=== PATIENT | male | born 1990 | race Caucasian/White ===

== ENCOUNTER 2021-04-03 20:36 | Inpatient (IN) | payer MEDICAID ==
[~2021-04-03] VITALS: Ht 188 cm; Wt 131.5 kg
[2021-04-03] MEDS ORDERED: DEXAMETHASONE 10 MG/ML VIAL IV ONE (21:15)
[2021-04-03] MEDS ORDERED: CEFTRIAXONE 1 G PREMIX 50 ML IV ONE (21:15)
[2021-04-03] MEDS ORDERED: AZITHROMYCIN 500 MG in DEXT 5% WATER 250 ML IV ONE (21:15)
[2021-04-03] MEDS ORDERED: SODIUM CHLORIDE 0.9% 1000ML BAG (SEPSIS BOLUS) IV ONE (21:15)
[2021-04-03 22:37] LABS: BASOPHILS % 0.1 % (0.0-2.0); HEMATOCRIT. 38.5 % (42.0-52.0); HEMOGLOBIN. 13.3 g/dL (14.0-18.0); LYMPHOCYTES % 13.5 % (20.0-50.0); MEAN CORPUSCULAR HEMOGLOBIN 30.5 pg (28.0-32.0); MEAN CORPUSCULAR VOLUME 88.4 fL (80.0-94.0); MEAN PLATELET VOLUME 11.4 fl (7.4-10.4); MONOCYTES % 2.6 % (2.0-8.0); NEUTROPHILS % 83.8 % (40.0-76.0); PLATELET 89 x1000/uL (130-400); RED BLOOD CELL COUNT 4.36 mill/uL (4.7-6.1); RED CELL DISTRIBUTION WIDTH 13.7 % (11.6-14.6)
[2021-04-03 22:42] LABS: CHLORIDE 95 mEq/L (98-107)
[2021-04-03 22:48] LABS: PARTIAL THROMBOPLASTIN TIME 27.6 sec (23.4-31.0)
[2021-04-04] VITALS (7 sets, daily range): BP systolic 106–151; BP diastolic 59–83
[2021-04-04] MEDS: GUAIFENESIN-DM 200MG-20MG/10ML UDC PO PRN ×2 (02:31→21:11)
[2021-04-04 09:00] LABS: BASOPHILS % 0.2 % (0.0-2.0); HEMATOCRIT. 34.9 % (42.0-52.0); HEMOGLOBIN. 12.1 g/dL (14.0-18.0); LYMPHOCYTES % 12.6 % (20.0-50.0); MEAN CORPUSCULAR HEMOGLOBIN 30.5 pg (28.0-32.0); MEAN CORPUSCULAR VOLUME 88.3 fL (80.0-94.0); MEAN PLATELET VOLUME 11.1 fl (7.4-10.4); MONOCYTES % 2.6 % (2.0-8.0); NEUTROPHILS % 84.6 % (40.0-76.0); PLATELET 95 x1000/uL (130-400); RED BLOOD CELL COUNT 3.96 mill/uL (4.7-6.1); RED CELL DISTRIBUTION WIDTH 13.7 % (11.6-14.6)
[2021-04-04] MEDS ORDERED: ENOXAPARIN 40MG/0.4ML SYR SUBCUT SCH (09:00)
[2021-04-04] MEDS: DEXAMETHASONE 10 MG/ML VIAL IV SCH (09:04)
[2021-04-04 09:11] LABS: CHLORIDE 98 mEq/L (98-107)
[2021-04-04] MEDS ORDERED: ONDANSETRON HCL 4MG/2ML INJ IV PRN (09:15)
[2021-04-04] MEDS: BENZONATATE 100MG CAPSULE PO SCH ×3 (09:28→21:11)
[2021-04-04] MEDS: ENOXAPARIN 40MG/0.4ML SYR SUBCUT SCH ×2 (09:29→21:11)
[2021-04-04] MEDS: ACETAMINOPHEN 325MG TABLET PO PRN (09:30)
[2021-04-04] MEDS: CEFTRIAXONE 1,000 MG in DEXTROSE 5% WATER 50 ML IV SCH (21:11)
[2021-04-04] MEDS: AZITHROMYCIN 500 MG in DEXT 5% WATER 250 ML IV SCH (22:05)
[2021-04-05] VITALS (7 sets, daily range): BP systolic 133–152; BP diastolic 60–88
[2021-04-05] MEDS: BENZONATATE 100MG CAPSULE PO SCH ×3 (07:07→21:36)
[2021-04-05] MEDS: ENOXAPARIN 40MG/0.4ML SYR SUBCUT SCH ×2 (08:08→21:36)
[2021-04-05] MEDS: DEXAMETHASONE 10 MG/ML VIAL IV SCH (08:08)
[2021-04-05] MEDS: ALBUTEROL 6.7GM HFA INHALER ORI PRN (15:32)
[2021-04-05] MEDS: CEFTRIAXONE 1,000 MG in DEXTROSE 5% WATER 50 ML IV SCH (21:36)
[2021-04-05] MEDS: AZITHROMYCIN 500 MG in DEXT 5% WATER 250 ML IV SCH (23:43)
[2021-04-06] VITALS: BP 141/69
[2021-04-06 04:00] VITALS: BP 133/57
[2021-04-06 04:48] LABS: BG BASE EXCESS 1.8 mmol/L (-2.0-2.0); BG CARBOXYHEMOGLOBIN 0.3 % (0.5-1.5); BG DEOXYHEMOGLOBIN 7.8 % (0.0-5.0); BG FRACTION INSPIRED OXYGEN 100; BG HCO3 ACT 26.1 mmol/L (22.0-26.0); BG METHEMOGLOBIN 0.2 % (0.0-1.5); BG OXYGEN SATURATION 92.2 % (92.0-98.5); BG OXYHEMOGLOBIN 91.7 % (94.0-97.0); BG PH 7.433 (7.350-7.450); BG PO2 63.6 mmHg (75.0-100.0); BG SAMPLE SITE LEFT RADIAL; BG VENT MODE MASK - BIPAP
[2021-04-06 06:35] LABS: BASOPHILS % 0.1 % (0.0-2.0); HEMATOCRIT. 40.8 % (42.0-52.0); HEMOGLOBIN. 13.7 g/dL (14.0-18.0); LYMPHOCYTES % 9.3 % (20.0-50.0); MEAN CORPUSCULAR HEMOGLOBIN 29.7 pg (28.0-32.0); MEAN CORPUSCULAR VOLUME 88.4 fL (80.0-94.0); MEAN PLATELET VOLUME 11.6 fl (7.4-10.4); MONOCYTES % 3.7 % (2.0-8.0); NEUTROPHILS % 86.9 % (40.0-76.0); PLATELET 146 x1000/uL (130-400); RED BLOOD CELL COUNT 4.61 mill/uL (4.7-6.1); RED CELL DISTRIBUTION WIDTH 13.9 % (11.6-14.6)
[2021-04-06] MEDS: BENZONATATE 100MG CAPSULE PO SCH ×3 (06:46→21:01)
[2021-04-06 08:00] VITALS: BP 128/78
[2021-04-06] MEDS: DEXAMETHASONE 10 MG/ML VIAL IV SCH (08:20)
[2021-04-06] MEDS: ENOXAPARIN 40MG/0.4ML SYR SUBCUT SCH ×2 (08:20→21:01)
[2021-04-06 12:00] VITALS: BP 131/79
[2021-04-06 16:00] VITALS: BP 136/71
[2021-04-06 20:00] VITALS: BP 122/73
[2021-04-06] MEDS: CEFTRIAXONE 1,000 MG in DEXTROSE 5% WATER 50 ML IV SCH (21:01)
[2021-04-06] MEDS: AZITHROMYCIN 500 MG in DEXT 5% WATER 250 ML IV SCH (22:05)
[2021-04-07 00:25] VITALS: BP 111/55
[2021-04-07] MEDS: GUAIFENESIN-DM 200MG-20MG/10ML UDC PO PRN (02:43)
[2021-04-07] MEDS: ACETAMINOPHEN 325MG TABLET PO PRN (02:43)
[2021-04-07 04:00] VITALS: BP 110/59
[2021-04-07] MEDS: BENZONATATE 100MG CAPSULE PO SCH ×3 (05:07→21:04)
[2021-04-07 08:00] VITALS: BP 125/64
[2021-04-07] MEDS: DEXAMETHASONE 10 MG/ML VIAL IV SCH (08:02)
[2021-04-07] MEDS: ENOXAPARIN 40MG/0.4ML SYR SUBCUT SCH (08:02)
[2021-04-07 08:04] LABS: BASOPHILS % 0.3 % (0.0-2.0); EOSINOPHILS % 0.3 % (0.0-5.0); HEMATOCRIT. 36.7 % (42.0-52.0); HEMOGLOBIN. 12.6 g/dL (14.0-18.0); LYMPHOCYTES % 10.1 % (20.0-50.0); MEAN CORPUSCULAR HEMOGLOBIN 30.2 pg (28.0-32.0); MEAN CORPUSCULAR VOLUME 88.2 fL (80.0-94.0); NEUTROPHILS % 86.3 % (40.0-76.0); PLATELET 159 x1000/uL (130-400); RED BLOOD CELL COUNT 4.16 mill/uL (4.7-6.1); RED CELL DISTRIBUTION WIDTH 13.6 % (11.6-14.6)
[2021-04-07 08:23] LABS: CHLORIDE 98 mEq/L (98-107)
[2021-04-07] MEDS: ALBUTEROL 6.7GM HFA INHALER ORI PRN ×2 (08:52→13:37)
[2021-04-07 11:53] LABS: BG BASE EXCESS 2.8 mmol/L (-2.0-2.0); BG CARBOXYHEMOGLOBIN 0.3 % (0.5-1.5); BG FRACTION INSPIRED OXYGEN 100; BG HCO3 ACT 26.7 mmol/L (22.0-26.0); BG METHEMOGLOBIN 0.3 % (0.0-1.5); BG OXYHEMOGLOBIN 95.4 % (94.0-97.0); BG PCO2 38.5 mmHg (35.0-45.0); BG PH 7.459 (7.350-7.450); BG PO2 81.2 mmHg (75.0-100.0); BG SAMPLE SITE RIGHT RADIAL; BG TOTAL HEMOGLOBIN 13.6 g/dL (12.0-18.0); BG TOTAL RESPIRATORY RATE 48 b/min; BG VENT MODE MASK - BIPAP
[2021-04-07 12:00] VITALS: BP 132/60
[2021-04-07 16:00] VITALS: BP 125/69
[2021-04-07 20:00] VITALS: BP 123/57
[2021-04-07] MEDS: CEFTRIAXONE 1,000 MG in DEXTROSE 5% WATER 50 ML IV SCH (21:03)
[2021-04-07] MEDS: ENOXAPARIN 30MG/0.3ML SYR SUBCUT SCH (21:04)
[2021-04-07] MEDS: AZITHROMYCIN 500 MG in DEXT 5% WATER 250 ML IV SCH (23:06)
[2021-04-08] VITALS: BP 131/67
[2021-04-08] MEDS: GUAIFENESIN-DM 200MG-20MG/10ML UDC PO PRN ×2 (03:08→13:05)
[2021-04-08 04:00] VITALS: BP 135/56
[2021-04-08] MEDS: BENZONATATE 100MG CAPSULE PO SCH ×3 (05:27→22:51)
[2021-04-08 08:00] VITALS: BP 149/74
[2021-04-08] MEDS: DEXAMETHASONE 10 MG/ML VIAL IV SCH (08:06)
[2021-04-08] MEDS: ENOXAPARIN 30MG/0.3ML SYR SUBCUT SCH ×2 (08:07→22:52)
[2021-04-08] MEDS: ACETAMINOPHEN 325MG TABLET PO PRN (08:19)
[2021-04-08 12:00] VITALS: BP 124/68
[2021-04-08 12:14] LABS: BG BASE EXCESS 4.2 mmol/L (-2.0-2.0); BG CARBOXYHEMOGLOBIN 0.1 % (0.5-1.5); BG DEOXYHEMOGLOBIN 6.7 % (0.0-5.0); BG FRACTION INSPIRED OXYGEN 100; BG HCO3 ACT 28.9 mmol/L (22.0-26.0); BG METHEMOGLOBIN 0.2 % (0.0-1.5); BG OXYGEN SATURATION 93.3 % (92.0-98.5); BG PCO2 43.9 mmHg (35.0-45.0); BG PH 7.437 (7.350-7.450); BG PO2 66.6 mmHg (75.0-100.0); BG SAMPLE SITE RIGHT RADIAL; BG TOTAL HEMOGLOBIN 13.3 g/dL (12.0-18.0); BG TOTAL RESPIRATORY RATE 29 b/min; BG VENT MODE MASK - BIPAP
[2021-04-08 16:00] VITALS: BP 122/57
[2021-04-08 20:00] VITALS: BP 143/85
[2021-04-08 21:46] LABS: HEMATOCRIT. 40.5 % (42.0-52.0); HEMOGLOBIN. 13.4 g/dL (14.0-18.0); MEAN CORPUSCULAR HEMOGLOBIN 29.3 pg (28.0-32.0); MEAN CORPUSCULAR VOLUME 88.9 fL (80.0-94.0); MEAN PLATELET VOLUME 10.3 fl (7.4-10.4); PLATELET 175 x1000/uL (130-400); RED BLOOD CELL COUNT 4.55 mill/uL (4.7-6.1); RED CELL DISTRIBUTION WIDTH 13.4 % (11.6-14.6)
[2021-04-08 22:12] LABS: CHLORIDE 99 mEq/L (98-107)
[2021-04-08 22:23] LABS: PLATELET ESTIMATE NORMAL
[2021-04-08] MEDS: CEFTRIAXONE 1,000 MG in DEXTROSE 5% WATER 50 ML IV SCH (22:50)
[2021-04-09] VITALS: BP 136/82
[2021-04-09 04:00] VITALS: BP 130/77
[2021-04-09] MEDS: BENZONATATE 100MG CAPSULE PO SCH ×3 (05:37→21:16)
[2021-04-09] MEDS: GUAIFENESIN-DM 200MG-20MG/10ML UDC PO PRN (07:59)
[2021-04-09] MEDS: DEXAMETHASONE 10 MG/ML VIAL IV SCH (07:59)
[2021-04-09 08:00] VITALS: BP 134/73
[2021-04-09] MEDS: ENOXAPARIN 30MG/0.3ML SYR SUBCUT SCH ×2 (08:00→21:16)
[2021-04-09 10:09] LABS: BG BASE EXCESS 4.1 mmol/L (-2.0-2.0); BG CARBOXYHEMOGLOBIN 0.2 % (0.5-1.5); BG FRACTION INSPIRED OXYGEN 99.8; BG HCO3 ACT 28.1 mmol/L (22.0-26.0); BG METHEMOGLOBIN 0.2 % (0.0-1.5); BG OXYHEMOGLOBIN 93.6 % (94.0-97.0); BG PH 7.465 (7.350-7.450); BG PO2 68.4 mmHg (75.0-100.0); BG SAMPLE SITE RIGHT RADIAL; BG TOTAL HEMOGLOBIN 12.9 g/dL (12.0-18.0); BG VENT MODE MASK - NRB
[2021-04-09 10:11] LABS: HEMOGLOBIN. 12.1 g/dL (14.0-18.0); MEAN CORPUSCULAR HEMOGLOBIN 30.1 pg (28.0-32.0); MEAN CORPUSCULAR VOLUME 89.4 fL (80.0-94.0); MEAN PLATELET VOLUME 10.4 fl (7.4-10.4); PLATELET 174 x1000/uL (130-400); RED BLOOD CELL COUNT 4.03 mill/uL (4.7-6.1); RED CELL DISTRIBUTION WIDTH 13.9 % (11.6-14.6)
[2021-04-09 10:18] LABS: CHLORIDE 98 mEq/L (98-107)
[2021-04-09 12:00] VITALS: BP 119/65
[2021-04-09] MEDS: ACETAMINOPHEN 325MG TABLET PO PRN (12:09)
[2021-04-09 13:51] LABS: PLATELET ESTIMATE NORMAL
[2021-04-09 16:00] VITALS: BP 137/82
[2021-04-09 20:00] VITALS: BP 139/83
[2021-04-09] MEDS: CEFEPIME 1,000 MG in DEXTROSE 5% WATER 50 ML IV SCH (21:15)
[2021-04-09] MEDS ORDERED: IVERMECTIN 3 MG TABLET PO SCH (22:00)
[2021-04-10] VITALS: BP 145/77
[2021-04-10 04:00] VITALS: BP 141/72
[2021-04-10] MEDS: ACETAMINOPHEN 325MG TABLET PO PRN (04:52)
[2021-04-10] MEDS: BENZONATATE 100MG CAPSULE PO SCH ×3 (04:56→21:16)
[2021-04-10 08:00] VITALS: BP 112/48
[2021-04-10] MEDS: MULTIVITAMINS,THER W-MINERALS TABLET PO SCH (08:26)
[2021-04-10] MEDS: DEXAMETHASONE 10 MG/ML VIAL IV SCH (08:26)
[2021-04-10] MEDS: ENOXAPARIN 30MG/0.3ML SYR SUBCUT SCH ×2 (08:26→21:16)
[2021-04-10] MEDS: CEFEPIME 1,000 MG in DEXTROSE 5% WATER 50 ML IV SCH (08:26)
[2021-04-10 12:00] VITALS: BP_SYST 121; BP_SYST 124; BP_DIAS 70; BP_DIAS 71
[2021-04-10 16:00] VITALS: BP 118/73
[2021-04-10 20:44] VITALS: BP 133/74
[2021-04-11 00:22] VITALS: BP 105/55
[2021-04-11] MEDS: GUAIFENESIN-DM 200MG-20MG/10ML UDC PO PRN ×2 (03:22→22:20)
[2021-04-11 04:00] VITALS: BP 144/80
[2021-04-11] MEDS: BENZONATATE 100MG CAPSULE PO SCH ×3 (06:04→21:35)
[2021-04-11 08:00] VITALS: BP 131/63
[2021-04-11] MEDS: DEXAMETHASONE 10 MG/ML VIAL IV SCH (08:02)
[2021-04-11] MEDS: ENOXAPARIN 30MG/0.3ML SYR SUBCUT SCH ×2 (08:03→21:34)
[2021-04-11] MEDS: MULTIVITAMINS,THER W-MINERALS TABLET PO SCH (08:03)
[2021-04-11 12:00] VITALS: BP 123/59
[2021-04-11 16:00] VITALS: BP 121/62
[2021-04-11 20:00] VITALS: BP 116/65
[2021-04-11] MEDS ORDERED: IVERMECTIN 3 MG TABLET PO SCH (22:00)
[2021-04-12] VITALS: BP 123/77
[2021-04-12 04:00] VITALS: BP 110/54
[2021-04-12] MEDS: BENZONATATE 100MG CAPSULE PO SCH ×3 (06:09→20:55)
[2021-04-12 08:00] VITALS: BP 126/66
[2021-04-12] MEDS: GUAIFENESIN-DM 200MG-20MG/10ML UDC PO PRN (08:27)
[2021-04-12] MEDS: MULTIVITAMINS,THER W-MINERALS TABLET PO SCH (08:27)
[2021-04-12] MEDS: DEXAMETHASONE 10 MG/ML VIAL IV SCH (08:27)
[2021-04-12] MEDS: ENOXAPARIN 30MG/0.3ML SYR SUBCUT SCH ×2 (08:28→20:55)
[2021-04-12 08:51] LABS: CHLORIDE 99 mEq/L (98-107)
[2021-04-12 12:00] VITALS: BP 122/68
[2021-04-12] MEDS: THROAT LOZENGES-BENZOCAINE/MENTH/CETYLPYRD CL LOZENGES MM PRN ×2 (14:54→20:55)
[2021-04-12] MEDS: DIPHENHYDRAMINE 50MG CAPSULE PO PRN (14:54)
[2021-04-12 16:00] VITALS: BP 138/67
[2021-04-12 20:00] VITALS: BP 112/66
[2021-04-13] VITALS: BP 117/66
[2021-04-13] MEDS: GUAIFENESIN-DM 200MG-20MG/10ML UDC PO PRN ×2 (03:50→09:52)
[2021-04-13] MEDS: THROAT LOZENGES-BENZOCAINE/MENTH/CETYLPYRD CL LOZENGES MM PRN ×2 (03:53→09:52)
[2021-04-13 04:00] VITALS: BP 119/62
[2021-04-13] MEDS: BENZONATATE 100MG CAPSULE PO SCH ×3 (05:40→21:10)
[2021-04-13 08:00] VITALS: BP 140/71
[2021-04-13] MEDS: DIPHENHYDRAMINE 50MG CAPSULE PO PRN (09:42)
[2021-04-13] MEDS: ENOXAPARIN 30MG/0.3ML SYR SUBCUT SCH ×2 (09:42→21:10)
[2021-04-13] MEDS: ALBUTEROL 6.7GM HFA INHALER ORI PRN (09:42)
[2021-04-13] MEDS: MULTIVITAMINS,THER W-MINERALS TABLET PO SCH (09:42)
[2021-04-13] MEDS: DEXAMETHASONE 10 MG/ML VIAL IV SCH (11:15)
[2021-04-13 12:00] VITALS: BP 140/72
[2021-04-13 16:00] VITALS: BP 131/63
[2021-04-13 20:00] VITALS: BP 132/55
[2021-04-14 00:03] VITALS: BP 117/62
[2021-04-14 04:00] VITALS: BP 136/84
[2021-04-14] MEDS: BENZONATATE 100MG CAPSULE PO SCH ×3 (05:22→20:15)
[2021-04-14 08:00] VITALS: BP 115/55
[2021-04-14] MEDS: THROAT LOZENGES-BENZOCAINE/MENTH/CETYLPYRD CL LOZENGES MM PRN ×2 (08:07→14:38)
[2021-04-14] MEDS: GUAIFENESIN-DM 200MG-20MG/10ML UDC PO PRN ×2 (08:07→14:38)
[2021-04-14] MEDS: DEXAMETHASONE 10 MG/ML VIAL IV SCH (08:08)
[2021-04-14] MEDS: ENOXAPARIN 30MG/0.3ML SYR SUBCUT SCH ×2 (08:08→20:15)
[2021-04-14] MEDS: MULTIVITAMINS,THER W-MINERALS TABLET PO SCH (08:08)
[2021-04-14 12:00] VITALS: BP 112/60
[2021-04-14] MEDS: ALBUTEROL 6.7GM HFA INHALER ORI PRN (14:31)
[2021-04-14 15:08] LABS: BG BASE EXCESS 3.3 mmol/L (-2.0-2.0); BG CARBOXYHEMOGLOBIN 0.3 % (0.5-1.5); BG DEOXYHEMOGLOBIN 4.3 % (0.0-5.0); BG METHEMOGLOBIN 0.1 % (0.0-1.5); BG OXYGEN SATURATION 95.7 % (92.0-98.5); BG OXYHEMOGLOBIN 95.3 % (94.0-97.0); BG PCO2 54.6 mmHg (35.0-45.0); BG PH 7.358 (7.350-7.450); BG PO2 82.6 mmHg (75.0-100.0); BG SAMPLE SITE RIGHT RADIAL; BG TOTAL HEMOGLOBIN 13.6 g/dL (12.0-18.0); BG VENT MODE MASK - NRB
[2021-04-14 16:00] VITALS: BP 116/73
[2021-04-14 20:00] VITALS: BP 94/53
[2021-04-15 00:05] VITALS: BP 120/81
[2021-04-15 04:00] VITALS: BP 97/59
[2021-04-15] MEDS: GUAIFENESIN-DM 200MG-20MG/10ML UDC PO PRN (04:48)
[2021-04-15] MEDS: BENZONATATE 100MG CAPSULE PO SCH ×3 (04:48→21:20)
[2021-04-15 06:35] LABS: CHLORIDE 100 mEq/L (98-107)
[2021-04-15 06:45] LABS: BASOPHILS % 0.4 % (0.0-2.0); EOSINOPHILS % 1.2 % (0.0-5.0); HEMATOCRIT. 38.5 % (42.0-52.0); HEMOGLOBIN. 13.2 g/dL (14.0-18.0); LYMPHOCYTES % 14.8 % (20.0-50.0); MEAN CORPUSCULAR HEMOGLOBIN 30.4 pg (28.0-32.0); MEAN CORPUSCULAR VOLUME 88.8 fL (80.0-94.0); MEAN PLATELET VOLUME 10.6 fl (7.4-10.4); MONOCYTES % 5.2 % (2.0-8.0); NEUTROPHILS % 78.4 % (40.0-76.0); PLATELET 241 x1000/uL (130-400); RED BLOOD CELL COUNT 4.34 mill/uL (4.7-6.1); RED CELL DISTRIBUTION WIDTH 13.4 % (11.6-14.6)
[2021-04-15 08:00] VITALS: BP 110/57
[2021-04-15] MEDS: MULTIVITAMINS,THER W-MINERALS TABLET PO SCH (08:32)
[2021-04-15] MEDS: DEXAMETHASONE 10 MG/ML VIAL IV SCH (08:32)
[2021-04-15] MEDS: ENOXAPARIN 30MG/0.3ML SYR SUBCUT SCH ×2 (09:33→21:21)
[2021-04-15 10:30] LABS: BG BASE EXCESS 7.2 mmol/L (-2.0-2.0); BG CARBOXYHEMOGLOBIN 0.3 % (0.5-1.5); BG FRACTION INSPIRED OXYGEN 100; BG METHEMOGLOBIN 0.3 % (0.0-1.5); BG OXYHEMOGLOBIN 97.4 % (94.0-97.0); BG PCO2 51.7 mmHg (35.0-45.0); BG PH 7.423 (7.350-7.450); BG PO2 109.1 mmHg (75.0-100.0); BG SAMPLE SITE LEFT RADIAL; BG VENT MODE MASK - NRB
[2021-04-15 12:00] VITALS: BP 95/67
[2021-04-15 16:00] VITALS: BP 111/51
[2021-04-15 20:00] VITALS: BP 134/74
[2021-04-16] VITALS: BP 121/72
[2021-04-16 04:00] VITALS: BP 112/62
[2021-04-16] MEDS: BENZONATATE 100MG CAPSULE PO SCH ×3 (05:01→21:05)
[2021-04-16 08:00] VITALS: BP 108/36
[2021-04-16] MEDS: DEXAMETHASONE 10 MG/ML VIAL IV SCH (09:15)
[2021-04-16] MEDS: MULTIVITAMINS,THER W-MINERALS TABLET PO SCH (09:16)
[2021-04-16] MEDS: ENOXAPARIN 30MG/0.3ML SYR SUBCUT SCH ×2 (09:16→21:05)
[2021-04-16 12:00] VITALS: BP 123/43
[2021-04-16 16:00] VITALS: BP 119/40
[2021-04-16 20:00] VITALS: BP 110/40
[2021-04-17] VITALS: BP 117/76
[2021-04-17 04:00] VITALS: BP 124/64
[2021-04-17] MEDS: BENZONATATE 100MG CAPSULE PO SCH ×3 (05:25→21:11)
[2021-04-17 08:00] VITALS: BP 114/71
[2021-04-17] MEDS: MULTIVITAMINS,THER W-MINERALS TABLET PO SCH (09:02)
[2021-04-17] MEDS: ENOXAPARIN 30MG/0.3ML SYR SUBCUT SCH ×2 (09:02→21:11)
[2021-04-17] MEDS: GUAIFENESIN-DM 200MG-20MG/10ML UDC PO PRN (09:02)
[2021-04-17] MEDS: DEXAMETHASONE 10 MG/ML VIAL IV SCH (09:02)
[2021-04-17 12:00] VITALS: BP 121/76
[2021-04-17 16:00] VITALS: BP 130/54
[2021-04-17 20:00] VITALS: BP 99/40
[2021-04-18] VITALS: BP 115/70
[2021-04-18 04:00] VITALS: BP 110/67
[2021-04-18] MEDS: BENZONATATE 100MG CAPSULE PO SCH ×3 (05:02→21:27)
[2021-04-18 08:00] VITALS: BP 107/56
[2021-04-18] MEDS: DEXAMETHASONE 10 MG/ML VIAL IV SCH (08:10)
[2021-04-18] MEDS: MULTIVITAMINS,THER W-MINERALS TABLET PO SCH (08:10)
[2021-04-18] MEDS: ENOXAPARIN 30MG/0.3ML SYR SUBCUT SCH ×2 (08:12→21:27)
[2021-04-18] MEDS: GUAIFENESIN-DM 200MG-20MG/10ML UDC PO PRN (10:39)
[2021-04-18 12:00] VITALS: BP 125/65
[2021-04-18 12:20] LABS: BG BASE EXCESS 5.7 mmol/L (-2.0-2.0); BG CARBOXYHEMOGLOBIN 0.5 % (0.5-1.5); BG DEOXYHEMOGLOBIN 9.5 % (0.0-5.0); BG FRACTION INSPIRED OXYGEN 21; BG HCO3 ACT 29.8 mmol/L (22.0-26.0); BG METHEMOGLOBIN 0.2 % (0.0-1.5); BG OXYGEN SATURATION 90.4 % (92.0-98.5); BG OXYHEMOGLOBIN 89.8 % (94.0-97.0); BG PCO2 41.5 mmHg (35.0-45.0); BG PH 7.474 (7.350-7.450); BG PO2 56.6 mmHg (75.0-100.0); BG SAMPLE SITE RIGHT RADIAL; BG TOTAL HEMOGLOBIN 14.1 g/dL (12.0-18.0); BG VENT MODE ROOM AIR
[2021-04-18 16:15] VITALS: BP 100/58
[2021-04-18 20:00] VITALS: BP 127/68
[2021-04-19] VITALS: BP 105/63
[2021-04-19 04:00] VITALS: BP 119/65
[2021-04-19] MEDS: BENZONATATE 100MG CAPSULE PO SCH ×3 (05:42→21:39)
[2021-04-19 08:00] VITALS: BP 126/76
[2021-04-19] MEDS: GUAIFENESIN-DM 200MG-20MG/10ML UDC PO PRN (09:47)
[2021-04-19] MEDS: DEXAMETHASONE 10 MG/ML VIAL IV SCH (09:47)
[2021-04-19] MEDS: MULTIVITAMINS,THER W-MINERALS TABLET PO SCH (09:47)
[2021-04-19] MEDS: ENOXAPARIN 30MG/0.3ML SYR SUBCUT SCH ×2 (12:21→21:40)
[2021-04-19 20:00] VITALS: BP 125/63
[2021-04-20] VITALS: BP 131/71
[2021-04-20 04:00] VITALS: BP 123/74
[2021-04-20] MEDS: BENZONATATE 100MG CAPSULE PO SCH ×4 (06:35→21:34)
[2021-04-20] MEDS: GUAIFENESIN-DM 200MG-20MG/10ML UDC PO PRN (06:40)
[2021-04-20 08:00] VITALS: BP 128/81
[2021-04-20] MEDS: MULTIVITAMINS,THER W-MINERALS TABLET PO SCH (09:35)
[2021-04-20] MEDS: ENOXAPARIN 30MG/0.3ML SYR SUBCUT SCH ×2 (09:35→21:34)
[2021-04-20] MEDS: DEXAMETHASONE 10 MG/ML VIAL IV SCH (09:35)
[2021-04-20 12:00] VITALS: BP 115/66
[2021-04-20 16:00] VITALS: BP 120/98
[2021-04-20 20:00] VITALS: BP 127/68
[2021-04-21] VITALS: BP 109/42
[2021-04-21 04:00] VITALS: BP 125/73
[2021-04-21] MEDS: BENZONATATE 100MG CAPSULE PO SCH ×3 (05:36→21:01)
[2021-04-21 08:00] VITALS: BP 122/63
[2021-04-21] MEDS: MULTIVITAMINS,THER W-MINERALS TABLET PO SCH (09:05)
[2021-04-21] MEDS: DEXAMETHASONE 10 MG/ML VIAL IV SCH (09:05)
[2021-04-21] MEDS: ENOXAPARIN 30MG/0.3ML SYR SUBCUT SCH ×2 (09:06→21:01)
[2021-04-21 12:00] VITALS: BP 112/61
[2021-04-21 16:00] VITALS: BP 118/66
[2021-04-21 20:00] VITALS: BP 125/74
[2021-04-22] VITALS: BP 125/64
[2021-04-22 04:00] VITALS: BP 112/67
[2021-04-22 06:14] LABS: BASOPHILS % 0.3 % (0.0-2.0); EOSINOPHILS % 0.1 % (0.0-5.0); HEMATOCRIT. 39.9 % (42.0-52.0); HEMOGLOBIN. 13.2 g/dL (14.0-18.0); LYMPHOCYTES % 26.1 % (20.0-50.0); MEAN CORPUSCULAR HEMOGLOBIN 29.9 pg (28.0-32.0); MEAN CORPUSCULAR VOLUME 90.2 fL (80.0-94.0); MEAN PLATELET VOLUME 10.8 fl (7.4-10.4); NEUTROPHILS % 68.5 % (40.0-76.0); PLATELET 237 x1000/uL (130-400); RED BLOOD CELL COUNT 4.42 mill/uL (4.7-6.1); RED CELL DISTRIBUTION WIDTH 13.6 % (11.6-14.6)
[2021-04-22] MEDS: BENZONATATE 100MG CAPSULE PO SCH ×3 (06:27→20:55)
[2021-04-22 06:46] LABS: CHLORIDE 105 mEq/L (98-107)
[2021-04-22 08:00] VITALS: BP 120/74
[2021-04-22] MEDS: DEXAMETHASONE 10 MG/ML VIAL IV SCH (08:50)
[2021-04-22] MEDS: ENOXAPARIN 30MG/0.3ML SYR SUBCUT SCH ×2 (08:50→20:55)
[2021-04-22] MEDS: MULTIVITAMINS,THER W-MINERALS TABLET PO SCH (08:50)
[2021-04-22 16:00] VITALS: BP 128/78
[2021-04-22 17:12] LABS: BG BASE EXCESS 0.9 mmol/L (-2.0-2.0); BG CARBOXYHEMOGLOBIN 0.3 % (0.5-1.5); BG DEOXYHEMOGLOBIN 4.7 % (0.0-5.0); BG FRACTION INSPIRED OXYGEN 21; BG HCO3 ACT 25.1 mmol/L (22.0-26.0); BG METHEMOGLOBIN 0.2 % (0.0-1.5); BG OXYGEN SATURATION 95.3 % (92.0-98.5); BG OXYHEMOGLOBIN 94.8 % (94.0-97.0); BG PCO2 38.6 mmHg (35.0-45.0); BG PH 7.431 (7.350-7.450); BG SAMPLE SITE LEFT RADIAL; BG TOTAL HEMOGLOBIN 14.5 g/dL (12.0-18.0); BG VENT MODE ROOM AIR
[2021-04-22 20:00] VITALS: BP 121/69
[2021-04-22 23:46] VITALS: BP 115/43
[2021-04-23 04:00] VITALS: BP 126/74
[2021-04-23] MEDS: BENZONATATE 100MG CAPSULE PO SCH ×3 (06:28→20:45)
[2021-04-23 08:00] VITALS: BP 129/71
[2021-04-23] MEDS: ENOXAPARIN 30MG/0.3ML SYR SUBCUT SCH ×2 (09:21→20:46)
[2021-04-23] MEDS: MULTIVITAMINS,THER W-MINERALS TABLET PO SCH (09:22)
[2021-04-23] MEDS: DEXAMETHASONE 10 MG/ML VIAL IV SCH (09:22)
[2021-04-23 12:00] VITALS: BP 125/70
[2021-04-23 16:00] VITALS: BP 122/74
[2021-04-23 20:00] VITALS: BP 124/76
[2021-04-24] VITALS: BP 118/69
[2021-04-24 04:00] VITALS: BP 126/73
[2021-04-24] MEDS: BENZONATATE 100MG CAPSULE PO SCH ×3 (06:23→22:40)
[2021-04-24 08:00] VITALS: BP 117/73
[2021-04-24] MEDS: ENOXAPARIN 30MG/0.3ML SYR SUBCUT SCH ×2 (09:28→22:39)
[2021-04-24] MEDS: DEXAMETHASONE 10 MG/ML VIAL IV SCH (09:28)
[2021-04-24] MEDS: MULTIVITAMINS,THER W-MINERALS TABLET PO SCH (09:28)
[2021-04-24 12:00] VITALS: BP 105/75
[2021-04-24 16:00] VITALS: BP 124/68
[2021-04-24 20:00] VITALS: BP 128/69
[2021-04-25] VITALS: BP 130/71
[2021-04-25 04:00] VITALS: BP 124/62
[2021-04-25] MEDS: BENZONATATE 100MG CAPSULE PO SCH ×2 (06:38→14:10)
[2021-04-25 08:00] VITALS: BP 130/71
[2021-04-25] MEDS: MULTIVITAMINS,THER W-MINERALS TABLET PO SCH (08:27)
[2021-04-25] MEDS: DEXAMETHASONE 10 MG/ML VIAL IV SCH (08:27)
[2021-04-25] MEDS: ENOXAPARIN 30MG/0.3ML SYR SUBCUT SCH (08:27)
[2021-04-25 12:00] VITALS: BP 131/66
[2021-04-25] MEDS ORDERED: ALBU6.7H9 ORI (16:27)
[2021-04-25] MEDS ORDERED: BENZ100C86 PO (16:27)
[2021-04-25 17:49] VITALS: BP 135/65
[2021-04-26] MEDS ORDERED: IBUP-2030 MT (12:40)
== END 2021-04-25 18:30 | disposition home or self-care (01) | DRG 720 ==
LOC: ER 20:36 → 7WST 22:49 → ENRESERV 23:32 → 7WST 04-04 00:11 → 7EST 04-18 10:13
PROVIDERS: ADMIT Internal Medicine; ATTEND Internal Medicine
PROC: 5A09357 Assistance with Respiratory Ventilation, Less than 24 Consecutive Hours, Continuous Positive Airway Pressure (ICD-10-PCS; principal; 2021-04-06)
PROC: 5A09357 Assistance with Respiratory Ventilation, Less than 24 Consecutive Hours, Continuous Positive Airway Pressure (ICD-10-PCS; 2021-04-07)
PROC: 5A09357 Assistance with Respiratory Ventilation, Less than 24 Consecutive Hours, Continuous Positive Airway Pressure (ICD-10-PCS; 2021-04-08)
PROC: 5A09357 Assistance with Respiratory Ventilation, Less than 24 Consecutive Hours, Continuous Positive Airway Pressure (ICD-10-PCS; 2021-04-15)
PROC: 5A09357 Assistance with Respiratory Ventilation, Less than 24 Consecutive Hours, Continuous Positive Airway Pressure (ICD-10-PCS; 2021-04-16)
PROC: 5A09357 Assistance with Respiratory Ventilation, Less than 24 Consecutive Hours, Continuous Positive Airway Pressure (ICD-10-PCS; 2021-04-17)
DX: A41.89 Other specified sepsis (principal); U07.1 COVID-19; J96.01 Acute respiratory failure with hypoxia; E87.8 Other disorders of electrolyte and fluid balance, not elsewhere classified; L89.896 Pressure-induced deep tissue damage of other site; E44.0 Moderate protein-calorie malnutrition; J12.82 Pneumonia due to coronavirus disease 2019; E87.1 Hypo-osmolality and hyponatremia; D64.9 Anemia, unspecified; G47.30 Sleep apnea, unspecified; I49.1 Atrial premature depolarization; R74.01 Elevation of levels of liver transaminase levels; E66.01 Morbid (severe) obesity due to excess calories; Z71.3 Dietary counseling and surveillance; Z79.899 Other long term (current) drug therapy; Z68.41 Body mass index [BMI] 40.0-44.9, adult; Z82.49 Family history of ischemic heart disease and other diseases of the circulatory system
CPT/HCPCS: 36415; 36600; 71045; 80048; 80053; 81003; 82040; 82375; 82728; 82805; 83605; 83615; 83880; 84134; 84145; 84484; 85025; 85379; 86140; 87426; 93005; 94618; 94640; 94660; 99285; J0456; J0692; J0696; J1100; J1650; J7030; J7040; J7060; Q0163; U0003; U0005

== ENCOUNTER 2021-04-26 09:30 | Emergency (ER) | payer MEDICAID ==
[~2021-04-26] VITALS: Ht 188 cm; Wt 90.0 kg
[~2021-04-26 09:30] MED LIST: ALBU6.7H9 ORI; BENZ100C86 PO
[2021-04-26] MEDS ORDERED: KETOROLAC 60MG/2ML VIAL IM ONE (10:15)
[2021-04-26] MEDS ORDERED: TRAMADOL 50MG TABLET PO ONE (10:15)
[2021-04-26 11:11] VITALS: BP 125/75
[2021-04-26] MEDS ORDERED: IBUP-2030 MT (12:40)
== END 2021-04-26 12:49 | disposition home or self-care (01) ==
LOC: ER 09:30
DX: M25.562 Pain in left knee (principal); M25.561 Pain in right knee
CPT/HCPCS: 93970; 96372; 99284; J1885

== ENCOUNTER 2021-04-30 20:04 | Emergency (ER) | payer MEDICAID ==
[~2021-04-30] VITALS: Ht 188 cm; Wt 132.0 kg
[~2021-04-30 20:04] MED LIST changes: +IBUP-2030 MT
[2021-04-30 21:36] LABS: BASOPHILS % 1.3 % (0.0-2.0); EOSINOPHILS % 4.6 % (0.0-5.0); HEMATOCRIT. 42.1 % (42.0-52.0); HEMOGLOBIN. 14.5 g/dL (14.0-18.0); LYMPHOCYTES % 28.3 % (20.0-50.0); MEAN CORPUSCULAR HEMOGLOBIN 30.6 pg (28.0-32.0); MEAN CORPUSCULAR VOLUME 89.1 fL (80.0-94.0); MEAN PLATELET VOLUME 10.3 fl (7.4-10.4); MONOCYTES % 5.9 % (2.0-8.0); NEUTROPHILS % 59.9 % (40.0-76.0); PLATELET 179 x1000/uL (130-400); RED BLOOD CELL COUNT 4.72 mill/uL (4.7-6.1); RED CELL DISTRIBUTION WIDTH 14.6 % (11.6-14.6)
[2021-04-30 21:41] LABS: CHLORIDE 107 mEq/L (98-107)
[2021-05-01] MEDS ORDERED: IOHEXOL-350 100 ML BOTTLE ONE (04:04)
[2021-05-01 04:13] VITALS: BP 130/72
== END 2021-05-01 04:17 | disposition home or self-care (01) ==
LOC: ER 20:04
DX: J98.4 Other disorders of lung (principal); B94.8 Sequelae of other specified infectious and parasitic diseases; Z99.81 Dependence on supplemental oxygen; R00.0 Tachycardia, unspecified; K76.0 Fatty (change of) liver, not elsewhere classified; Z82.49 Family history of ischemic heart disease and other diseases of the circulatory system
CPT/HCPCS: 36415; 71275; 80053; 83880; 84484; 85025; 85379; 93005; 99285; Q9967

== ENCOUNTER 2021-08-12 14:05 | Day surgery (SDC) | payer MEDICAID ==
[~2021-08-12] VITALS: Ht 190.5 cm; Wt 127.0 kg
[2021-08-12] MEDS ORDERED: ONDANSETRON HCL 4MG/2ML INJ IV STA (16:56)
[2021-08-12] MEDS ORDERED: MORPHINE SULFATE 4 MG/ML CPJ (NOT FOR IM USE) IV STA (16:56)
[2021-08-12 17:40] LABS: BASOPHILS % 0.5 % (0.0-2.0); EOSINOPHILS % 0.1 % (0.0-5.0); HEMATOCRIT. 41.7 % (42.0-52.0); HEMOGLOBIN. 14.2 g/dL (14.0-18.0); LYMPHOCYTES % 19.9 % (20.0-50.0); MEAN CORPUSCULAR VOLUME 88.2 fL (80.0-94.0); MEAN PLATELET VOLUME 11.4 fl (7.4-10.4); MONOCYTES % 5.3 % (2.0-8.0); NEUTROPHILS % 74.2 % (40.0-76.0); PLATELET 182 x1000/uL (130-400); RED BLOOD CELL COUNT 4.73 mill/uL (4.7-6.1); RED CELL DISTRIBUTION WIDTH 13.3 % (11.6-14.6)
[2021-08-12 17:44] LABS: CHLORIDE 104 mEq/L (98-107)
[2021-08-12 18:00] VITALS: BP 139/79
[2021-08-12] MEDS ORDERED: BUPIVACAINE HCL/PF 0.25% (2.5MG/ML) 10ML ONE (19:08)
[2021-08-12] MEDS ORDERED: PROPOFOL 200MG/20ML VIAL IV ONE ×2 (20:07→20:39)
[2021-08-12] MEDS ORDERED: MIDAZOLAM HCL 2 MG/2 ML VIAL ONE ×2 (20:08→20:51)
[2021-08-12] MEDS ORDERED: CEFAZOLIN SODIUM 1000MG/VIAL ONE (20:08)
[2021-08-12] MEDS ORDERED: BACITRACIN 15GM TUBE TOP ONE (20:40)
[2021-08-12] MEDS ORDERED: ACETAMINOPHEN WITH CODEINE 300/30MG TABLET PO PRN (21:30)
== END 2021-08-12 23:30 | disposition home or self-care (01) ==
LOC: ER 14:05 → OR 19:30 → EDBEDREQTM 20:55 → EDBEDREQ 20:55 → OR 23:30 → CANBEDREQ 08-13 18:50
PROVIDERS: ATTEND Urology
DX: N47.1 Phimosis (principal); R33.9 Retention of urine, unspecified; Z79.899 Other long term (current) drug therapy; Z98.890 Other specified postprocedural states; Z20.822 Contact with and (suspected) exposure to COVID-19; Z82.49 Family history of ischemic heart disease and other diseases of the circulatory system
CPT/HCPCS: 36415; 54161; 80053; 85025; 87086; 87426; 99285; C1758; J0690; J2250; J2270; J2405; J2704; J3490

== ENCOUNTER 2023-04-25 22:58 | Emergency (ER) | payer MEDICAID ==
[~2023-04-25] VITALS: Ht 190.5 cm; Wt 144.0 kg
[~2023-04-25 22:58] MED LIST changes: +ALBU6.7H3 ORI; -ALBU6.7H9 ORI
[2023-04-25 23:20] VITALS: BP 161/101; O2SAT 97
[2023-04-26 00:10] LABS: BASOPHILS % 0.5 % (0.0-2.0); EOSINOPHILS % 1.3 % (0.0-5.0); HEMATOCRIT. 42.7 % (42.0-52.0); HEMOGLOBIN. 14.3 g/dL (14.0-18.0); LYMPHOCYTES % 38.6 % (20.0-50.0); MEAN CORPUSCULAR HEMOGLOBIN 29.7 pg (28.0-32.0); MEAN CORPUSCULAR HGB CONC 33.4 g/dL (31.0-37.0); MEAN PLATELET VOLUME 11.2 fl (7.4-10.4); MONOCYTES % 6.8 % (2.0-8.0); NEUTROPHILS % 52.8 % (40.0-76.0); PLATELET 178 x1000/uL (130-400); RED BLOOD CELL COUNT 4.79 mill/uL (4.7-6.1); RED CELL DISTRIBUTION WIDTH 14.3 % (11.6-14.6); WHITE BLOOD COUNT 8.4 x1000/uL (4.5-11.0)
[2023-04-26 00:20] LABS: CHLORIDE 104 mEq/L (98-107); INDEX HEMOLYSI 1 (1-3); INDEX ICTERIC 1 (1-4); INDEX LIPEMIC 1 (1-3); POTASSIUM 3.7 mEq/L (3.5-5.1); SODIUM 137 mEq/L (136-145)
[2023-04-26 00:58] LABS: CLARITY URINE CLEAR (CLEAR); COLOR URINE DARK YELLOW (YELLOW); GLUCOSE URINE NEGATIVE (NEGATIVE); KETONES URINE NEGATIVE (NEGATIVE); LEUKOCYTE ESTERASE URINE NEGATIVE (NEGATIVE); NITRITE URINE NEGATIVE (NEGATIVE); OCCULT BLOOD URINE NEGATIVE (NEGATIVE); PH URINE 5.5 (4.5-8.0); PROTEIN URINE 1+ (NEGATIVE); SPECIFIC GRAVITY URINE 1.031 (1.005-1.030)
[2023-04-26 01:12] LABS: ALBUMIN 3.8 g/dL (3.4-5.0)
[2023-04-26 01:38] LABS: ALANINE AMINOTRANSFERASE 133 IU/L (13-61); ASPARTATE AMINOTRANSFERASE 51 IU/L (15-37); BILIRUBIN TOTAL 0.6 mg/dL (0.1-1.0); CALCIUM 9.1 mg/dL (8.5-10.1); CARBON DIOXIDE 27 mEq/L (21-32); CREATININE 0.9 mg/dL (0.6-1.3); GLUCOSE 97 mg/dL (70-105); PROTEIN TOTAL 8.5 g/dL (6.0-8.3); UREA NITROGEN BLOOD 9 mg/dL (7-21)
[2023-04-26] MEDS ORDERED: NAPR-681 PO (02:31)
[2023-04-26 03:03] VITALS: PULSE 86; RESP 18; TEMP 98.3
[2023-04-26 05:26] LABS: WBC URINE 0-2 /hpf (0-2)
[2023-04-26 05:27] LABS: RBC URINE NONE SEEN /hpf (0-2)
[2023-04-26 05:30] LABS: AMORPHOUS SEDIMENT URINE 1+ /lpf; BACTERIA URINE NONE SEEN; SQUAMOUS EPITHELIAL CELL URINE FEW /lpf (RARE/1+)
== END 2023-04-26 03:05 | disposition home or self-care (01) ==
LOC: ER 22:58
DX: M54.9 Dorsalgia, unspecified (principal); I51.7 Cardiomegaly
CPT/HCPCS: 36415; 71045; 80053; 81003; 85025; 99284

== ENCOUNTER 2023-11-05 02:15 | Emergency (ER) | payer MEDICAID ==
[~2023-11-05] VITALS: Ht 190.5 cm; Wt 139.0 kg
[~2023-11-05 02:15] MED LIST changes: +NAPR-681 PO
[2023-11-05 02:44] VITALS: BP 142/71; TEMP 98.4; O2SAT 95
[2023-11-05 02:54] VITALS: PULSE 84; RESP 18
== END 2023-11-05 08:38 | disposition left against medical advice (07) ==
LOC: ER 02:15
DX: M25.552 Pain in left hip (principal); Z53.21 Procedure and treatment not carried out due to patient leaving prior to being seen by health care provider
CPT/HCPCS: 99281